=== PATIENT | male | born 1990 | race Two or more races ===

== ENCOUNTER 2017-12-30 17:32 | Emergency (ER) | payer MEDICAID ==
[2017-12-30 18:00] LABS: % BASOPHILS 0.4 % (0.0-2.0); % EOSINOPHILS 0.4 % (0.0-5.0); % LYMPHOCYTES 19.9 % (20.0-50.0); % MONOCYTES 8.8 % (2.0-10.0); % NEUTROPHILS 70.5 % (40.0-80.0); HEMATOCRIT 52.5 % (41.0-60); HEMOGLOBIN 17.9 gm/dL (12-16); LYMPHOCYTE ABSOLUTE 1.9 Th/cmm (1.5-3.0); MEAN CELL VOLUME 89.8 fl (80-99); MEAN CORPUSCULAR HEMOGLOBIN 30.7 pg (26.0-30.0); MEAN CORPUSCULAR HGB CONC 34.2 pg (28.0-36.0); MEAN PLATELET VOLUME 7.9 fl; MONOCYTE ABSOLUTE 0.8 Th/cmm (0.3-1.0); NEUTROPHILE ABSOLUTE 6.9 Th/cmm (1.8-8.0); PLATELET COUNT 204 Th/cmm (150-400); RED BLOOD COUNT 5.85 Mil/cmm (4.30-5.70); RED CELL DISTRIBUTION WIDTH 12.7 % (11.5-20.0); WHITE BLOOD COUNT 9.6 Th/cmm (4.8-10.8)
[2017-12-30 18:15] LABS: ALBUMIN 4.7 gm/dL (4.2-5.5); ALKALINE PHOSPHATASE 76 U/L (34-104); ANION GAP 12.6 (7.0-16.0); BILIRUBIN,TOTAL 1.7 mg/dL (0.3-1.0); BUN - UREA NITROGEN 15 mg/dL (7-25); CALCIUM SERUM 9.5 mg/dL (8.6-10.3); CARBON DIOXIDE 22.2 mEq/L (21.0-31.0); CHLORIDE 105 mEq/L (98-107); CREATININE - SERUM 0.7 mg/dL (0.7-1.3); GFR AFRICAN-AMERICAN > 60.0 ml/min (>90); GFR NON AFRICAN-AMERICAN > 60.0 ml/min; GLUCOSE 83 mg/dL (70-105); POTASSIUM SERUM 3.8 mEq/L (3.5-5.1); SGOT 58 U/L (13-39); SGPT/ALT 73 U/L (7-52); SODIUM SERUM 136 mEq/L (136-145); TOTAL PROTEIN,SERUM 7.1 gm/dL (6.0-8.3)
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
[2017-12-30 19:15] LABS: INR 0.91 (0.5-1.4); PROTHROMBIN TIME (TEST) 9.5 SECONDS (9.5-11.5)
--- NOTE | 2017-12-31 09:44 | Diagnostic Imaging Report ---
CT scan of the brain without contrast History: Headache, trauma Total DLP equals 631 CTDI equals 36.3 Axial sections were obtained from the base of the skull to the vertex. There is a normal ventricular system size. No focal parenchymal lesions are seen. No evidence of any mass effect or shift of midline structures. No extra-axial masses or abnormal fluid collections. Suggestion of right periorbital soft tissue swelling (separate CT orbital report) Impression: 1. No acute intracerebral abnormalities 2. Suggestion of right periorbital soft tissue swelling (see separate CT orbit report).
--- NOTE | 2017-12-31 09:46 | Diagnostic Imaging Report ---
CT scan of the orbits without intravenous contrast HISTORY: Pain, trauma Total DLP equals 267 CTDI equals 17.3 Axial sections were obtained through the orbital region. Additional coronal and sagittal reformatted images are provided. The exam demonstrates a depressed fracture involving the anterior wall the right maxillary sinus. Overlying soft tissue swelling. Air is seen extending into the subcutaneous tissues. There is retention of normal bony margins about the orbits. The zygomatic arches are intact. The pterygoid plates are intact. No focal amenities involve the nasal bones. IMPRESSION: 1. Depressed fracture involving the anterior wall the right maxillary sinus with associated soft tissue swelling and subcutaneous air.
--- NOTE | 2017-12-31 09:47 | Diagnostic Imaging Report ---
CT scan of the chest without intravenous contrast HISTORY: Pain, trauma Total DLP equals 221 CTDI equals 5.5 Axial sections were obtained from a level above the clavicles down to level below the diaphragm. The heart size is normal. Evaluation of the hilar vascular structures limited due to the absence of intravenous contrast. No abnormal mediastinal masses. No focal pulmonary parenchymal processes. No pleural fluid. No pneumothorax. IMPRESSION: 1. No acute abnormalities
== END 2017-12-30 20:15 | disposition home or self-care (01) ==
LOC: ER 17:32
DX: S02.40CA Maxillary fracture, right side, initial encounter for closed fracture (principal); R07.81 Pleurodynia; F17.200 Nicotine dependence, unspecified, uncomplicated; Y08.89XA Assault by other specified means, initial encounter; Y93.89 Activity, other specified; Y92.89 Other specified places as the place of occurrence of the external cause; Y99.8 Other external cause status
CPT/HCPCS: 99285; 96372; 70450; 70480; 71250; 36415; 85025; 85610; 85730; 80053; J0696; Z7610